=== PATIENT | male | born 1985 | race Caucasian/White ===

== ENCOUNTER 2018-12-09 12:35 | Inpatient (IN) | payer MEDICAID, OTHER ==
[~2018-12-09] VITALS: Ht 170.2 cm; Wt 86.4 kg
[2018-12-09] MEDS ORDERED: SUBO8MIS SL (12:46)
[2018-12-09] MEDS ORDERED: TRAZ-160 PO (12:46)
[2018-12-09 13:04] LABS: HEMATOCRIT 42.1 % (42.0-52.0); HEMOGLOBIN 14.7 g/dl (13.5-17.5); MEAN CORPUSCULAR HGB CONC 34.9 g/dl (32.0-36.5); MEAN CORPUSCULAR VOLUME 85.9 fl (80.0-96.0); PLATELET COUNT, AUTOMATED 312 10^3/uL (150-450); WHITE BLOOD COUNT 9.4 10^3/uL (4.0-10.0)
[2018-12-09 13:44] LABS: ACETAMINOPHEN LEVEL < 2.0 UG/ML (10.0-30.0); ALBUMIN 4.6 GM/DL (3.2-5.2); ALT/SGPT 32 U/L (12-78); BILIRUBIN,DIRECT 0.2 MG/DL (0.0-0.2); BILIRUBIN,TOTAL 0.9 MG/DL (0.2-1.0); BLOOD UREA NITROGEN 11 MG/DL (7-18); CALCIUM LEVEL 9.2 MG/DL (8.5-10.1); CARBON DIOXIDE LEVEL 23 MEQ/L (21-32); CHLORIDE LEVEL 101 MEQ/L (98-107); CREATININE FOR GFR 0.93 MG/DL (0.70-1.30); ETHYL ALCOHOL (ETHANOL) < 0.003 % (0.000-0.010); GLOMERULAR FILTRATION RATE > 60.0 (>60); GLUCOSE, FASTING 104 MG/DL (70-100); POTASSIUM SERUM 3.6 MEQ/L (3.5-5.1); SALICYLATE LEVEL 2.9 MG/DL (5.0-30.0); SODIUM LEVEL 134 MEQ/L (136-145); TOTAL PROTEIN 8.1 GM/DL (6.4-8.2)
[2018-12-09] MEDS ORDERED: ONDANSETRON 4 MG ORAL DISINTEGRATING TAB (Q0162 PER 1MG) As Ordered ONE (14:03)
[2018-12-09] MEDS ORDERED: BUPRENORPHINE/NALOXONE 8-2MG SUBLINGUAL TABLET(SUBOXONE) SL ONE (14:15)
[2018-12-09] MEDS ORDERED: ONDANSETRON 4 MG ORAL DISINTEGRATING TAB (Q0162 PER 1MG) PO ONE (14:15)
[2018-12-09 14:16] LABS: AMPHETAMINES LEVEL URINE POSITIVE (NEGATIVE); BARBITURATES URINE NEGATIVE (NEGATIVE); BENZODIAZEPINES URINE NEGATIVE (NEGATIVE); CANNABINOIDS URINE POSITIVE (NEGATIVE); COCAINE METABOLITE URINE NEGATIVE (NEGATIVE); METHADONE URINE NEGATIVE (NEGATIVE); OPIATES URINE NEGATIVE (NEGATIVE); PHENCYCLIDINE URINE NEGATIVE (NEGATIVE)
[2018-12-09] MEDS ORDERED: traZODone 50 MG TAB PO PRN (18:30)
[2018-12-09] MEDS ORDERED: ACETAMINOPHEN TAB 650MG DOSE (2X325MG) PO PRN (18:30)
[2018-12-09] MEDS ORDERED: MAALOX 30 ML SUSP *UDC PO PRN (18:30)
[2018-12-09] MEDS ORDERED: MOM 30ML SUSPENSION UDC PO PRN (18:30)
[2018-12-09] MEDS ORDERED: ALPRAZolam 0.5 MG TAB PO ONE (20:15)
[2018-12-09 20:42] VITALS: BP 140/90
[2018-12-09] MEDS ORDERED: OXAZEPAM 15 MG CAP PO PRN (21:45)
[2018-12-09] MEDS ORDERED: OLANZapine ORAL DISINTEGRATING TAB 5MG PO PRN (21:45)
[2018-12-09] MEDS: BUPRENORPHINE/NALOXONE 8-2MG SUBLINGUAL TABLET(SUBOXONE) SL SCH (21:59)
[2018-12-10 06:54] VITALS: BP 134/76
[2018-12-10] MEDS: BUPRENORPHINE/NALOXONE 8-2MG SUBLINGUAL TABLET(SUBOXONE) SL SCH (08:50)
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
--- NOTE | 2018-12-10 15:05 | HPEPDOC ---
General Date of Admission December 09, 2018 at 18:27 Chief Complaint The patient is a 33-year-old male admitted with a reason for visit of Unspecified Depressive D/O. History of Present Illness Patient is a 33-year-old male, past medical history significant for quitting dependence, polysubstance abuse with THC, admitted to inpatient psychiatric unit on account of concerns for suicidal and homicidal ideation. On evaluation of patient he states he had no such thoughts and was just joking with friends. On assessment, he is very anxious about being in the inpatient psychiatric unit, stating he does not need to be here. Home Medications Scheduled Buprenorphine HCl/Naloxone HCl (Suboxone 8 mg-2 mg Sl Film) 1 Each Film, 1 MIS SL BID, (Reported) Trazodone HCl (Trazodone HCl) 50 Mg Tablet, 50 MG PO QHS, (Reported) Allergies Coded Allergies: No Known Allergies (Unverified , 12/09/18) Past Medical History Medical History Anxiety Nicotine dependence Surgical History Tonsillectomy and adenectomy Family History Father :Prostate Cancer Mother :DM Social History Smokes one pack per day, denies alcohol use, polysubstance abuse with THC A-FIB/CHADSVASC A-FIB History Current/History of A-Fib/PAF?: No Current Oral Anticoagulant The: No Review of Systems Other systems A 10 point pertinent review of systems is completed, negative except as stated in the history of presenting illness Physical Examination Other physical findings GENERAL: NAD SKIN : Warm, dry intact HEENT: Atraumatic, normocephalic, PERRL, moist mucous membrane CV: Regular rate and rhythm, S1S2, no JVD, no edema, distal pulses + and palpable RESP: CTAB, no accessory muscle use noted ABDOMEN: BS+, non distended non tender MS: no joint deformities NEURO: Alert and oriented x 3, CN2-12 grossly intact PSYCH: Anxious. Vital Signs Vital Signs Date Time Temp Pulse Resp B/P (MAP) Pulse Ox O2 Delivery O2 Flow Rate FiO2 12/10/18 06:54 97.5 104 16 134/76 (95) 12/09/18 19:40 98 12/09/18 18:12 Room Air Assessment/Plan Nicotine dependence Anxiety disorder PLAN Patient currently has no underlying medical comorbidities, requiring acute active follow-up Management of acute mental health issues by primary team Plan / VTE VTE Prophylaxis Ordered?: No VTE Exclusion Mechanical Proph: Low Risk for VTE RAFAEL COLLAZO December 10, 2018 15:05
--- NOTE | 2018-12-15 18:51 | MHDSPDOC ---
[facility] Discharge Summary Discharge Summary DATE OF ADMISSION: December 09, 2018 at 18:27 DATE OF DISCHARGE: December 10, 2018 at 14:00 DISCHARGE DIAGNOSES: 1. Other specified depressive disorder 2. Other specified anxiety disorder 3. Polysubstance abuse REASON FOR ADMISSION: As per ED report: Pt self-presented to ED and reported to this automobile service writer he did so because of depression and anxiety. When first arriving to the ED he reported to the nurse that he was SI/HI. However, when asked during the interview, pt denied any SI/HI. Pt states he was arrested Sunday for being in possession of klonopin that was not prescribed to him. He was picked up by PD for standing in the middle of [address] yelling profanities. Pt reports t hat Sunday night he drank ETOH for the first time in ~11years and took his friends [place] to calm down after he had a fight with his girlfriend. Even though pt denied SI, he did state that last night, he and his friends were walking down the street and when they passed a bridge, he asked his friends "how fun would it be to jump off?" and placed his foot on the bottom rail, but then said "just kidding" and kept walking. Pt states he did this to be funny not because he was feeling suicidal, again contradictory to what he told the nurse when first arriving to the ED. Pt has several stressors currently in his life that he states are contributing to him being anxious and depressed. He has a family court date coming up so he can try to get joint custody of his son, he was released from skilled nursing [id number] after spending 5 years there for multiple drug charges and is now on [place], he lost his skilled nursing I.D. card, and he has been fighting with his ex-/current girlfriend. Pt seems to be a poor historian since he has told two different people in the ED two different stories about being SI/HI. Pt is seen at [facility] outpatient and is prescribed suboxone, trazadone, and hydroxyzine. Pt has never been inpatient for mental health issues." CONSULTANTS INVOLVED: As above TREATMENT AND PROGRESS ON THE UNIT : The patient was almost an identical presentation to the one he had at the ED. He adamantly denied being suicidal, he said he had been Ok since he was released from [facility], he was living with his parents, he had some problems with his ex girlfriend. According to what Pier Hand Helper told his Cremator he had been doing really well since he was released from halfway 5 months ago. He was pleasant and cooperative but he was anxious. He didn't fulfill criteria for depression although he had been sad for some days and sometimes he had felt hopeless and helpless, but not suicidal. He was anxious and he had recently used drugs, amphetamines and marijuana. He was not in danger to self or others at the time of his evaluation, he was goal orientated, he was insightful regarding his legal situation and he worried about it. The patient had been going to [facility] where he was started on Suboxone and according to him, he had gone through a Mental Health Evaluation and they had told him that he was not depressed. He mentioned he had trouble sleeping and for that reason he took Trazodone and at some point he took Hydroxyzine because he was very anxious. HOSPITAL COURSE: As above DISCHARGE ASSESSMENT: Patient was not homicidal, not suicidal and not psychotic at the time of his discharge. MENTAL STATUS EXAMINATION ON DISCHARGE: General Appearance: disheveled, appears stated age, hospital scubs/clothing Build: average Demeanor: average Eye Contact: average Activity: anxious Behavior: cooperative, restless Speech: clear, spontaneous, reg/rate,rhythm,volume Mood: anxious Affect: full, appropriate, congruent, anxious Thought Process: logical/linear Thought Content (Delusions): none reported Thought Content (Other): none reported Thought Content (Aggressive): none reported Perception (Hallucinations): none reported Perception (Other): none reported Cognition (Impairment of): none reported Cognition(Intelligence Est.): average Oriented: Awake, Alert, Oriented times three Insight: fair Judgment: Fair Psychosis: Denies Diagnoses 1. Other specified depressive disorder 2. Other specified anxiety disorder 3. Polysubstance abuse MEDICATIONS ON DISCHARGE: Scheduled Buprenorphine HCl/Naloxone HCl (Suboxone 8 mg-2 mg Sl Film) 1 Each Film, 1 MIS SL BID, (Reported) Trazodone HCl (Trazodone HCl) 50 Mg Tablet, 50 MG PO QHS, (Reported) PLAN/FOLLOWUP ARRANGEMENTS: Follow Up Care Education Label * Lydia Reyna * Established With This Provider Yes * Additional information Directly after discharge see Lydia Wallis Follow Up Care Education Label * Mental Health Appt 1 * Mental Health [facility] * Established With This Provider Yes * Date December 11, 2018 * Time 10:00 * Address of Clinic or Practice [address] [facility] * Follow Up Care Education Label * Medical * Medical Follow Up [facility] * Established With This Provider Yes * Therapist DR. ESCAMILLA * Date December 24, 2018 * Time 15:00 * Address of Clinic or Practice [address] [facility] * * Additional information Will call pt with appt Follow Up Care Education Label * Smoking Cessation * Smoking Cessation [facility] Smoking Cessation The amount of time spent in the coordination of care for this patient was approximately 30 minutes. Vital Signs/I&Os Vital Signs Date Time Temp Pulse Resp B/P (MAP) Pulse Ox O2 Delivery O2 Flow Rate FiO2 12/10/18 06:54 97.5 104 16 134/76 (95) 12/09/18 19:40 98 12/09/18 18:12 Room Air Medications Scheduled Buprenorphine HCl/Naloxone HCl (Suboxone 8 mg-2 mg Sl Film) 1 Each Film, 1 MIS SL BID, (Reported) Trazodone HCl (Trazodone HCl) 50 Mg Tablet, 50 MG PO QHS, (Reported) Allergies Coded Allergies: No Known Allergies (Unverified , 12/09/18) MEGAN CORDOVA MD December 15, 2018 18:45
== END 2018-12-10 14:00 | disposition home or self-care (01) | DRG 753 ==
LOC: M ED 12:35 → M ED INP 18:27 → M PSY 20:34
PROVIDERS: ADMIT Psychiatry & Neurology Psychiatry; ATTEND Psychiatry & Neurology Psychiatry
DX: F32.89 Other specified depressive episodes (principal); F11.10 Opioid abuse, uncomplicated; F17.210 Nicotine dependence, cigarettes, uncomplicated; F12.10 Cannabis abuse, uncomplicated; Z81.1 Family history of alcohol abuse and dependence; Z81.3 Family history of other psychoactive substance abuse and dependence; F41.8 Other specified anxiety disorders; Z65.2 Problems related to release from prison; Z79.899 Other long term (current) drug therapy; Z63.5 Disruption of family by separation and divorce; Z63.0 Problems in relationship with spouse or partner